=== PATIENT | female | born 1945 | race Two or more races ===

== ENCOUNTER → 2020-12-16 | Outpatient (CLI) | payer OTHER, MEDICAID ==
--- NOTE | 2020-12-16 17:08 | RAD ---
Examination: Digital right diagnostic mammogram. INDICATION: Screening recall for right breast asymmetry COMPARISON: Mammogram of 10/29/2020. FINDINGS: The breast parenchyma is almost entirely fatty replaced. Right XCCL and right MLO spot compression views fail to demonstrate a persistent mammographic abnorma lity with minimal overlap of fibroglandular tissue seen on the MLO view. IMPRESSION: Negative right diagnostic mammogram. No evidence of malignancy. BI-RADS Category 1 Negative Recommend patient return to routine screening next due in one year. Patient entered into a reminder system with targeted due date for next mammogram Electronically signed by: Juan Pablo Prajapati MD (12/16/2020 5:06 PM) [id number]
== END | disposition home or self-care (01) ==
LOC: SDC 13:43
PROVIDERS: ATTEND Family Medicine
DX: Z12.39 Encounter for other screening for malignant neoplasm of breast (principal); R92.8 Other abnormal and inconclusive findings on diagnostic imaging of breast
CPT/HCPCS: 77065